=== PATIENT | female | born 1945 | race Caucasian/White ===

== ENCOUNTER 2025-01-28 13:00 | Emergency (ER) | payer MEDICARE, BC ==
[~2025-01-28] VITALS: Ht 162.6 cm; Wt 58.1 kg
[2025-01-28 13:29] LABS: IMMATURE GRANULOCYTE ABSOLUTE 0.02 K/uL (0-1); NUCLEATED RED BLOOD CELLS 0.0 % (0.0-0.19); PLATELET COUNT (AUTO) 226 K/uL (130-400); RED BLOOD CELL COUNT(AUTO) 4.50 MIL/uL (4.00-5.50); RED CELL DISTRIBUTION WIDTH 13.2 % (11.0-15.5); WHITE BLOOD COUNT (AUTO) 7.8 K/uL (4.8-10.8)
--- NOTE | 2025-01-28 13:34 | EKG ---
[facility] Test Date: 2025-01-28 Test Time: 13:25:49 Pat Name: AKSHAT BOSE Department: [facility] Room: Gender: F Cnc Programmer: [id number] Requested By: JESSICA RUIZ Order Number: [id number] Reading MD: London Flores Measurements Intervals [place] Rate: 105 P: 0 ND: 148 QRS: -55 QRSD: 93 T: 116 QT: 346 QTc: 457 Interpretive Statements Sinus with first degree AV block Left anterior fascicular block Probable anteroseptal infarct, old No previous ECG available for comparison Electronically Signed On 01-29-2025 21:11:30 NURSING CARE ATTENDANT by London Flores Please click the below link to view image of tracing.
--- NOTE | 2025-01-28 13:35 | ERN ---
General Chief Complaint: Multiple Complaints Stated Complaint: MULTIPLE COMPLAINTS Time Seen by MD: 13:02 Source: patient, family History of Present Illness Initial Comments Patient is a an 80-year-old female coming in complaining her pain neck pain he adache. Per patient she has a history of polymyalgia rheumatica and frequently has flare-ups. She states he is taking colchicine prescribed by a physical education specialist for the pain. Allergies: Coded Allergies: codeine (Unverified Allergy, Unknown, NAUSEA/VOMITING, 01/28/25) Past Medical History Past Medical History: A-Fib, GERD, Hypertension Past Surgical History: Other Surgical History Other: BILAT MASTECTOMY, PELVIC SX ROS Dictation CONSTITUTIONAL: No chills, no fever, no weakness, no diaphoresis, no malaise. HEAD/FACE: No signs of trauma. EENT: No eye pain, no blurred vision, no tearing, no double vision, no ear pain, no ear discharge, no nose pain, no nasal congestion, no throat pain, no throat swelling, no mouth pain. RESPIRATORY: No cough, no orthopnea, no SOB, no stridor, no wheezing. CARDIOVASCULAR: No chest pain, no edema, no palpitations, no syncope. GASTROINTESTINAL/ABDOMINAL: No abdominal pain, no constipation, no diarrhea, no nausea, no vomiting. GENITOURINARY: No abnormal discharge, no dysuria, no frequent urination, no hematuria. No complaints of pain in the genitals. MUSCULOSKELETAL: No back pain, no gout, no joint pain, no joint swelling, no muscle pain, no muscle stiffness, no neck pain. INTEGUMENTARY: No change in color, no change in hair/nails, no dryness, no lesion, no lumps, no rash. NEUROLOGICAL/PSYCH: No anxiety, not depressed, no emotional problem, no headache, no numbness, no pre-existing deficit, no history of seizures, no tremors, no weakness. HEMATOLOGIC/LYMPHATIC: Not anemic, no history of blood clots, no apparent bleeding, no bruising, glands not swollen. All Systems Negative, Except as Noted. Physical Exam Physical Exam Dictation VITAL SIGNS: Reviewed. GENERAL APPEARANCE: Alert, oriented x3, no acute distress, obese. HEAD AND FACE: Non-traumatic. EYES: PERRL, pink conjunctivas, eyelid no trauma, anterior chamber clear. EARS: Pinnas intact and no signs of trauma or erythema. Ear canals clear and no discharge. TMs no erythema. NOSE: No discharge, no bleeding. OROPHARYNX: Mouth normal, teeth no caries, tongue pink. Pharynx clear, no erythema. Tonsils no exudates, no abscesses noted. Mucous membrane moist. NECK: Supple, non-tender, no thyromegaly, no masses, no JVD, no bruits. BREAST: Deferred. CHEST: No tenderness, no crepitus, no paradoxical movement, no retractions. LUNGS: Clear, well-ventilated, symmetric, no rales, no wheezing, no rhonchi, no stridor, good breath sounds bilaterally. HEART: Regular rate, regular rhythm, no murmur, no gallops. VASCULAR: No peripheral edema. ABDOMEN: Soft, positive bowel sounds, nondistended, no guarding, nontender, no rebound, no masses no hepatomegaly, no splenomegaly, no Kruger's sign, no hernias. RECTAL: Deferred. GENITAL: Deferred. NEUROLOGICAL: Normal speech, gross motor function intact, gross sensory function intact. MUSCULOSKELETAL: Neck nontender, full range of motion, back nontender, full range of motion. EXTREMITIES: Nontender, full range of motion. SKIN: Color pink, dry, no turgor, no rash, no lacerations, no abrasions, no contusions. LYMPHATICS: Deferred. Results Laboratory and Microbiology Lab and Micro Result Laboratory Tests Test 01/28/25 12:20 01/28/25 13:31 White Blood Count 7.8 K/uL (4.8-10.8) Red Blood Count 4.50 MIL/uL (4.00-5.50) Hemoglobin 13.8 g/dL (12.0-16.0) Hematocrit 41.3 % (36-48) Mean Corpuscular Volume 91.8 fL (79-99) Mean Corpuscular Hemoglobin 30.7 pg (27.0-33.0) Mean Corpuscular Hemoglobin Concent 33.4 g/dL (32.0-36.0) Red Cell Distribution Width 13.2 % (11.0-15.5) Platelet Count 226 K/uL (130-400) Mean Platelet Volume 9.7 fL (7.5-10.5) Immature Granulocyte % (Auto) 0.3 % (0-1) Neutrophils (%) (Auto) 77.5 % (40.0-77.0) H Lymphocytes (%) (Auto) 7.7 % (21.0-51.0) L Monocytes (%) (Auto) 13.8 % (3.0-13.0) H Eosinophils (%) (Auto) 0.3 % (0.0-8.0) Basophils (%) (Auto) 0.4 % (0.0-5.0) Neutrophils # (Auto) 6.0 K/uL (1.8-7.7) Lymphocytes # (Auto) 0.6 K/uL (1.0-4.8) L Monocytes # (Auto) 1.1 K/uL (0.1-1.0) H Eosinophils # (Auto) 0.02 K/uL (0.00-0.70) Basophils # (Auto) 0.03 K/uL (0.00-0.20) Absolute Immature Granulocyte (auto 0.02 K/uL (0-1) Nucleated Red Blood Cells 0.0 % (0.0-0.19) White Cell Morphology Comment See comments Sodium Level 132 mmol/L (136-145) L Potassium Level 4.2 mmol/L (3.5-5.1) Chloride Level 94 mmol/L (101-111) L Carbon Dioxide Level 31 mmol/L (21-32) Blood Urea Nitrogen 20 mg/dL (7-18) H Creatinine 0.8 mg/dL (0.5-1.0) Glomerular Filtration Rate Calc 74 mL/min (>90) Random Glucose 100 mg/dL (70-105) Total Calcium 9.0 mg/dL (8.5-10.1) Total Creatine Kinase 84 U/L (21-232) Troponin I High Sensitivity 9 ng/L (4-50) C-Reactive Protein, Quantitative 74.60 mg/L (0.5-3.0) H Urine Color LIGHT-YELLOW (YELLOW) Urine Appearance CLEAR (CLEAR) Urine pH 5.0 (5.0-8.0) Urine Specific [place] 1.017 (1.001-1.031) Urine Protein NEGATIVE mg/dL (NEGATIVE) Urine Glucose (UA) NEGATIVE mg/dL (NEGATIVE) Urine Ketones 5 mg/dL (NEGATIVE) H Urine Occult Blood NEGATIVE (NEGATIVE) Urine Nitrate NEGATIVE (NEGATIVE) Urine Bilirubin NEGATIVE mg/dL (NEGATIVE) Urine Urobilinogen 0.2 mg/dL (0.2-1.0) Urine Leukocyte Esterase NEGATIVE Yemi/uL Urine RBC 0-1 /HPF (0-1) Urine WBC 0-1 /HPF (0-1) Urine Squamous Epithelial Cells RARE /HPF (0-2) Urine Bacteria None /HPF (None Seen) Labs Reviewed?: Yes EKG/XRAY/US/CT/MRI EKG Comment 01/28/2025 time 1:25 p.m. Ventricular rate 105 Second-degree AV block SD [address] wave elevation or depression MDM MDM: Differential diagnosis: History of polymyalgia rheumatica, history of fibromyalgia, chronic pain, Rationale: Tests considered and ordered secondary to shared decision making include: Previous outside records reviewed: Old ER visits. Risk of complication and/or morbidity or mortality of patient management: None Medications-Per medication reconciliation Need for hospitalization: Patient does not meet criteria for hospitalization. Need for emergency major/minor surgery: No There are no social concerns with this patient. Patient is a 80-year-old female coming in complaining of bilateral arm shoulder pain. Per patient she has a history of recently diagnosed polymyalgia rheumatica. She states that she takes colchicine as prescribed by her physical education specialist back in [place]. She also states that in his is a of yesterday the medication was not working she decided to come in for further evaluation laboratory workup did show an increased C-reactive protein. Patient was given steroids as well as anti-inflammatories and antispasmodics states her symptoms have improved. Patient will be discharged in stable condition with a diagnosis of flare-up of PMR. ED Course Orders Procedure Category Date Status Time Cbc With Differential LAB 01/28/25 Complete 13:10 Basic Metabolic Panel LAB 01/28/25 Complete 13:10 Urinalysis LAB 01/28/25 Complete W/Microscopic 13:10 Crp Quantitative LAB 01/28/25 Complete 13:10 Creatine Kinase, Total LAB 01/28/25 Complete 13:10 12 Lead Ekg Tracing- EKG 01/28/25 Complete Technical 13:16 Troponin I High LAB 01/28/25 Complete Sensitivity 13:16 0.9%Nacl 1000ml (Ns PHA 01/28/25 Complete 1000ml) 13:30 Orphenadrine Citrate PHA 01/28/25 Complete (Norflex) 13:30 Triamcinolone Acet PHA 01/28/25 Complete 40mg/Ml 1ml (Kenalog 13:30 Ipratropium/Albuterol PHA 01/28/25 Complete Neb (Duoneb) 14:30 Ketorolac PHA 01/28/25 Complete Tromethamine 30mg/Ml 15:30 Current Medications Medications (Trade) Dose Ordered Sig/Merna Route PRN Reason Start Time Stop Time Status Last Admin Dose Admin Albuterol (DUOneb) 1 UDVIAL ONCE ONCE IH 01/28/25 14:30 01/28/25 14:31 DC 01/28/25 14:17 Ketorolac Tromethamine (toRADol) 30 mg ONCE ONCE IVP 01/28/25 15:30 01/28/25 15:31 DC 01/28/25 15:30 Orphenadrine Citrate (Norflex) 60 mg ONCE ONCE IM 01/28/25 13:30 01/28/25 13:31 DC 01/28/25 13:46 Sodium Chloride 1,000 ml @ 0 mls/hr ONCE ONCE IV 01/28/25 13:30 01/28/25 13:31 DC 01/28/25 13:46 Triamcinolone Acetonide (Kenalog 40) 40 mg ONCE ONCE IM 01/28/25 13:30 01/28/25 13:31 DC 01/28/25 13:46 Vital Signs Date Time Temp Pulse Resp B/P (MAP) Pulse Ox O2 Delivery O2 Flow Rate FiO2 01/28/25 16:15 98.8 75 23 154/84 95 Room Air* 0 01/28/25 14:51 98.8 80 19 173/77 97 Room Air* 0 01/28/25 14:18 74 14 01/28/25 13:33 98.8 111 22 159/96 96 Room Air* 0 01/28/25 13:02 99.0 66 16 153/78 98 Room Air 0 DX & DISP Disposition: Discharge Departure Impression: Primary Impression: History of polymyalgia rheumatica Additional Impression: Polymyalgia rheumatica Condition: Stable Scripts Methocarbamol (Robaxin) 750 Mg Tab 1 TAB PO BID PRN for shoulder aches/spasm for 5 Days, #10 TAB 0 Refills Prov: JESSICA RUIZ MD 01/28/25 Prednisone (Prednisone) 10 Mg Tab.ds.pk 1 TAB PO BID for 7 Days, #14 TAB 0 Refills Prov: JESSICA RUIZ MD 01/28/25 Ketorolac Tromethamine (Ketorolac Tromethamine) 10 Mg Tablet 1 TAB PO Q6HPRN PRN for pain for 5 Days, #20 TAB 0 Refills Prov: JESSICA RUIZ MD 01/28/25 Additional Instructions: FOLLOW-UP WITH PRIMARY CARE PROVIDER IN 1 TO 2 DAYS. TAKE MEDICATIONS DIRECTED HERE IN THE EMERGENCY ROOM. OKAY TO CONTINUE HOME MEDICATIONS UNLESS OTHERWISE DISCUSSED DURING YOUR VISIT IN THE EMERGENCY ROOM TODAY. RETURN TO YOUR NEAREST EMERGENCY ROOM IF SYMPTOMS WORSEN OR IF THERE IS NO IMPROVEMENT. CALL 911 IF YOU NEED IMMEDIATE ASSISTANCE. TAKE TYLENOL [id number] NEEDED AND IF NO CONTRAINDICATIONS ARE PRESENT. INCREASE ORAL HYDRATION. A WOUND CULTURE OR URINE CULTURE WAS ORDERED HERE IN THE EMERGENCY ROOM DEPARTMENT PLEASE FOLLOW-UP WITH PRIMARY CARE PROVIDER AND ADVISE THEM TO GET REPORTS FROM OUR FACILITY. IF YOU HAD ANY RUBI WRAP/SPLINTS THAT WERE APPLIED HERE, PLEASE DO NOT REMOVE THEM UNTIL YOU SEE YOUR PRIMARY CARE OR SPECIALTY. Referrals: Referrals: NHAN RIVERA MD Time of Disposition: 16:20 JESSICA RUIZ MD Jan 28, 2025 13:35
[2025-01-28 13:39] LABS: CREATININE 0.8 mg/dL (0.5-1.0); GLOMERULAR FILTR. RATE CALC 74.0 mL/min (>90); GLUCOSE,RANDOM 100.0 mg/dL (70-105); SODIUM SERUM 132.0 mmol/L (136-145); UREA NITROGEN, BLOOD 20.0 mg/dL (7-18)
[2025-01-28 13:44] LABS: CREATINE KINASE, TOTAL 84.0 U/L (21-232)
[2025-01-28] MEDS: TRIAMCINOLONE ACETONIDE 40 MG/ML 1ML VIAL IM ONE (13:46)
[2025-01-28] MEDS: ORPHENADRINE 60MG/2ML IM ONE (13:46)
[2025-01-28] MEDS: 0.9%NACL 1000ML 1,000 ML IV ONE (13:46)
[2025-01-28 13:47] LABS: APPEARANCE,URINE CLEAR (CLEAR); GLUCOSE, URINE (UA) NEGATIVE (NEGATIVE); LEUKOCYTE ESTERASE ,URINE NEGATIVE Leu/uL (NEGATIVE); NITRATE,URINE NEGATIVE (NEGATIVE); OCCULT BLOOD,URINE NEGATIVE (NEGATIVE); SQUAMOUS EPITHELIAL CELL,UR RARE /HPF (0-2)
[2025-01-28 14:18] VITALS: PULSE 74; RESP 14
[2025-01-28 16:15] VITALS: BP 154/84; PULSE 75; RESP 23; TEMP 98.8; O2SAT 95
[2025-01-28] MEDS ORDERED: PRED10TA23 PO (16:22)
[2025-01-28] MEDS ORDERED: METH-662 PO (16:22)
[2025-01-28] MEDS ORDERED: KETO10TA2 PO (16:22)
[2025-01-28] MEDS ORDERED: BENZ-39 PO (16:43)
--- NOTE | 2025-01-28 17:05 | NUR ---
PT STABLE NO DISTRESS VITALS WNL NO C/O PAIN, PT STATES SHE FEELS BETTER THAN WHEN SHE CAME IN. PT IV REMOVED CATHETER INTACT. PT GIVEN FOUR RX IN HAND WILL DROP OFF TO [facility] AND START TODAY. PT TAKEN OUT IN W/C DRIVEN HOME BY SPOUSE.
== END 2025-01-28 17:09 | disposition home or self-care (01) ==
LOC: EDH 13:00
DX: M35.3 Polymyalgia rheumatica (principal); I10 Essential (primary) hypertension; I44.0 Atrioventricular block, first degree; I48.91 Unspecified atrial fibrillation; Z88.5 Allergy status to narcotic agent; Z90.13 Acquired absence of bilateral breasts and nipples
CPT/HCPCS: 99285; 96374; 96361; 82550; 84484; 80048; 85025; 86140; 81001; 36415; 93005; 94640; 96372; J1885; J7030; J3301; J2360